=== PATIENT | female | born 1980 | race Two or more races ===

== ENCOUNTER → 2017-07-16 | Outpatient (CLI) | payer OTHER ==
[2017-07-16 14:27] LABS: LYMPH # 1.6 K/mm3 (0.7-4.5); LYMPH % 27.2 % (10-50.0)
[2017-07-16 14:46] LABS: AMPHETAMINES/METAMPHETAMINES NEGATIVE ng/mL (<1000)
[2017-07-16 15:02] LABS: BUN 10 mg/dL (7-18)
[2017-07-16 15:04] LABS: GFR (ESTIMATED) 70 ML/MIN (59-)
== END ==
LOC: LAB 13:21
PROVIDERS: Emergency Medicine
DX: R53.83 Other fatigue (principal); Z79.899 Other long term (current) drug therapy